=== PATIENT | female | born 1955 | race Caucasian/White ===

== ENCOUNTER 2021-02-04 18:52 | Emergency (ER) | payer OTHER ==
[~2021-02-04 18:52] MED LIST: AMBIEN10 M1 PO; ASACOL400 MG PO; CIPROFLOXACIN500 MG PO; EES400 MG PO; FLAGYL500 MG PO; PRILOSEC20 MG PO; VICO10300 PO; VICODIN 500 MG-1 TAB PO; ZOFRAN4 MG PO
[2021-02-05 00:02] VITALS: BP 151/73
[2021-02-05] MEDS ORDERED: NAPROXEN250 MG PO (00:41)
== END 2021-02-05 01:17 | disposition home or self-care (01) ==
LOC: ED 18:52
DX: S60.222A Contusion of left hand, initial encounter (principal); W23.0XXA Caught, crushed, jammed, or pinched between moving objects, initial encounter; Y93.89 Activity, other specified; Y92.89 Other specified places as the place of occurrence of the external cause; Y99.8 Other external cause status

== ENCOUNTER 2021-11-15 07:42 | Emergency (ER) | payer OTHER ==
[~2021-11-15] VITALS: Ht 12.7 cm; Wt 78.0 kg
[~2021-11-15 07:42] MED LIST changes: +NAPROXEN250 MG PO
[2021-11-15 08:36] LABS: BASO % 0.5 % (0.0-1.0); EOS # 0.1 10*3/uL (0.0-0.4); EOS % 2.1 % (1.0-4.0); HEMATOCRIT 34.5 % (37.0-47.0); LYMPH % 35.5 % (27.0-41.0); MEAN CELL VOLUME 84.8 fl (81.0-99.0); MEAN CORPUSCULAR HGB 26.3 pg (27.0-31.0); MEAN PLATELET VOLUME 9.3 fl (9.6-12.3); MONO # 0.4 10*3/uL (0.1-1.0); MONO % 6.3 % (3.0-9.0); NEUT # 3.2 10*3/uL (2.3-7.9); NEUT % 55.4 % (47.0-73.0); PLATELET COUNT AUTOMATED 293 10*3/uL (130-400); RED BLOOD COUNT 4.07 10*6/uL (4.10-5.10); RED CELL DISTRI WIDTH 16.6 % (0-14.5); WHITE BLOOD COUNT 5.7 10*3/uL (4.8-10.8)
[2021-11-15 09:04] LABS: POTASSIUM 4.1 mmol/L (3.5-5.1)
[2021-11-15 09:07] LABS: CREATININE 1.12 mg/dL (0.55-1.02); TOTAL PROTEIN 6.6 gm/dL (6.4-8.2)
[2021-11-15 10:02] VITALS: BP 146/58
== END 2021-11-15 11:15 | disposition home or self-care (01) ==
LOC: ED 07:42
PROVIDERS: Internal Medicine
DX: R07.9 Chest pain, unspecified (principal)